=== PATIENT | male | born 1935 | race Caucasian/White ===

== ENCOUNTER 2016-12-21 03:17 | Inpatient (IN) | payer MEDICARE, OTHER ==
[2017-06-07] MEDS ORDERED: FLOMAX DPS0.4 MG PO (12:33)
[2017-06-07] MEDS ORDERED: CEFTIN DPS500 MG PO (12:33)
[2017-06-07] MEDS ORDERED: MIRALAX PACKET17 GM PO (12:33)
[2017-06-07] MEDS ORDERED: VASOTEC DPS10 MG PO (12:34)
[2017-06-07] MEDS ORDERED: MULTIVITAMINS1 EAC8 PO (12:34)
[2017-06-07] MEDS ORDERED: NORVASC5 MG PO (12:34)
[2017-06-07] MEDS ORDERED: DUONEB DPS3 ML IH (12:35)
[2017-06-07] MEDS ORDERED: ZITHROMAX250 MG PO (12:35)
[2017-06-07] MEDS ORDERED: TYLENOL DPS325 MG PO (12:36)
[2017-06-07] MEDS ORDERED: DULCOLAX-DPS10 MG PR (12:36)
[2017-06-07] MEDS ORDERED: BIOTENE MOIST44.3 ML PO (12:36)
[2017-06-07] MEDS ORDERED: MILK OF MA400 MG/5 M PO (12:36)
== END 2016-12-28 13:49 | DRG 190 ==
DX: J44.0 Chronic obstructive pulmonary disease with (acute) lower respiratory infection (principal); J18.9 Pneumonia, unspecified organism; J96.01 Acute respiratory failure with hypoxia; R47.01 Aphasia; S06.350A Traumatic hemorrhage of left cerebrum without loss of consciousness, initial encounter; I10 Essential (primary) hypertension; R48.2 Apraxia; N32.0 Bladder-neck obstruction; S00.11XA Contusion of right eyelid and periocular area, initial encounter; W19.XXXA Unspecified fall, initial encounter; Z87.891 Personal history of nicotine dependence; Z86.73 Personal history of transient ischemic attack (TIA), and cerebral infarction without residual deficits

== ENCOUNTER 2017-05-30 16:54 | Inpatient (IN) | payer MEDICARE, OTHER ==
[~2017-05-30] VITALS: Ht 177.8 cm; Wt 64.2 kg
--- NOTE | ~2017-05-30 | ECH ---
Transthoracic Echocardiography Report (TTE) Demographics Patient Name ROSALINE RODRIGUEZ Date of Study 06/02/2017 Patient Number [id number] Visit Number [id number] Date of 1935 Room Number 421 Accession Number [id number] Gender Male Age 82 year(s) Referring Blaine Agee Accounts Payables Clerk Zita Naylor [facility] Physician Physician Interpreting Cecil Golden MD Websphere Consultant Physician Supervising Ordering Physician Blaine Agee MD, MD/P Nurse Stress Air Box Tester Conclusions Summary Technically fair exam. The estimated left ventricular ejection fraction is 60-65%. Mild to moderate left ventricular hypertrophy. Diastolic assessment reveals Grade I diastolic dysfunction. Normal right ventricle structure and function. The left atrium is mildly dilated. The right atrium is moderately dilated. There is mild pulmonary hypertension. The pulmonary pressure (RVSP) is 36 mmHg. Mild pulmonic valve regurgitation by color Doppler. Small to moderate size anterior pericardial effusion. Possible pleural effusion. Procedure Type of Study TTE procedure:Echo Complete SF. Procedure Date Date: 06/02/2017 Start: 09:17 AM Technical Quality: Fair Indications:Congestive heart failure, Shortness of breath and Hypertension. Appropriate Use Criteria: 9 Height: 70 inches Weight: 146 pounds BSA: 1.83 m Rhythm: Irregular HR: 84 bpm BP: 134/63 mmHg M-Mode/2D Measurements LV Diastolic Dimension: 4.87 cm LV Systolic Dimension: 2.71 cm LV Septum Diastolic: 1.4 cm LV PW Diastolic: 1.2 cm AO Root Dimension: 3.4 cm LA Dimension: 4.76 cm LVOT: 2.18 cm RV Base: 4.4 cm RV Mid: 3.2 cm RV Length: 7.3 cm TAPSE: 2.4 cm TDI-S': 15 cm/s Doppler Measurements AV Peak Velocity: 1.26 m/s MV Peak E-Wave: 0.6 m/s AV Peak Gradient: 6.35 mmHg MV Peak A-Wave: 0.8 m/s LVOT Peak Velocity: 0.7 m/s MV E/A Ratio: 0.75 MV P1/2t: 79 msec TR Velocity:2.8 m/s TR Gradient:31.36 mmHg MV Deceleration Time: 271 msec Estimated RAP:5 mmHg MV Area (PHT): 2.78 cm Estimated RVSP: 36 mmHg PV Peak Velocity: 1 m/s PV Peak Gradient: 4 mmHg Estimated PASP: 36.36 mmHg RA Area: 35 cm Findings Left Ventricle The left ventricle is normal in size . Mild to moderate left ventricular hypertrophy. Diastolic assessment reveals Grade I diastolic dysfunction. Right Ventricle Normal right ventricle structure and function. Left Atrium The left atrium is mildly dilated. Unable to calculate left atrial volume index. Right Atrium The right atrium is moderately dilated. Mitral Valve Normal mitral valve structure and function. Aortic Valve The aortic valve is mildly sclerotic, best seen subcostal view. Tricuspid Valve Normal appearing tricuspid valve. Mild tricuspid regurgitation by color Doppler. There is mild pulmonary hypertension. The pulmonary pressure (RVSP) is 36 mmHg. Pulmonic Valve Normal pulmonic valve structure and function. Mild pulmonic valve regurgitation by color Doppler. Pericardial Effusion Small to moderate size anterior pericardial effusion. Miscellaneous Visualized portions of the aortic root and ascending aorta appear normal in size. Pleural Effusion Possible pleural effusion. Signature
--- NOTE | 2017-06-05 11:33 | HP ---
ADMIT: 05/30/2017 RM/LOC: [facility] MR#: [id number] [address] [address] LU[place]ROS[place] [address] History and Physical SEX: M AGE: 82 : 1935 Corrected: 06/02/2017 0628 njv DATE OF SERVICE: CHIEF COMPLAINT AND HISTORY OF THE PRESENT ILLNESS: This 82-year-old male is admitted with pneumonia and possible congestive heart failure. The patient has a history of COPD, he has been living in a long term. He was noted to be hypoxic and in the long term, he has also had a deep cough, running a fever. He was brought to the emergency room. He was found to have left-sided infection and possible congestive heart failure. The patient was started on antibiotics, blood cultures were drawn, and he is admitted for further therapy. PREVIOUS MEDICAL HISTORY: Generally, his health has been poor. SOCIAL HISTORY: The patient has a history of smoking until approximately 8 months ago. He does not drink alcohol. He is living in a long term. He is retired. FAMILY HISTORY: There is no history of deep vein thrombophlebitis. REVIEW OF SYSTEMS: HEENT: There has been no syncope, headaches, or hearing loss. CARDIORESPIRATORY: The patient has a heavy smoking history. No history of congestive heart failure or myocardial infarction. He has had no hemoptysis. He has been somewhat short of breath lately. GASTROINTESTINAL: No nausea, vomiting, bloody stools, or diarrhea. GENITOURINARY: No hematuria or dysuria. He has had urinary retention and has been on Flomax. METABOLIC/ENDOCRINE: No history of thyroid disease or diabetes. MUSCULOSKELETAL: The patient has had some osteoarthritis. PHYSICAL EXAMINATION: VITAL SIGNS: Blood pressure is 116/52, respirations 20, pulse 96 and regular, temperature 97.1. GENERAL: The patient is an elderly male who is cooperative. He is oriented. HEENT: Head, normocephalic without exostoses. LOUIS. Throat within normal limits. NECK: Neck veins not distended. Thyroid not enlarged. CHEST: Diminished breath sounds bilaterally with bilateral gray. He has diminished breath sounds, particularly in the left lower lobe. No wheezes are heard. HEART: Regular rhythm. No murmur is heard. ABDOMEN: Soft, nontender. Liver is not enlarged. Spleen is not palpable. No abnormal masses are palpated. Femoral pulses are strong and equal bilaterally. GENITALIA: Normal. ADMIT: 05/30/2017 RM/LOC: [facility] MR#: [id number] [address] [address] [place] [address] History and Physical SEX: M AGE: 82 : 1935 EXTREMITIES: No cyanosis, clubbing or edema. ASSESSMENT: 1. Pneumonia. 2. Chronic obstructive pulmonary disease. 3. Hyponatremia. 4. History of intracranial hemorrhage with residual hemiparesis. 5. History of hypertension. 6. Urinary retention. Yaniv Valladares MD/ lianet JOB #: [id number] CC: Yaniv Valladares, Attending Physician Yaniv Valladares, Family Physician Corrected: 06/02/2017 0628 benja
[2017-06-07] MEDS ORDERED: MIRALAX PACKET17 GM PO (12:33)
[2017-06-07] MEDS ORDERED: CEFTIN DPS500 MG PO (12:33)
[2017-06-07] MEDS ORDERED: FLOMAX DPS0.4 MG PO (12:33)
[2017-06-07] MEDS ORDERED: MULTIVITAMINS1 EAC8 PO (12:34)
[2017-06-07] MEDS ORDERED: VASOTEC DPS10 MG PO (12:34)
[2017-06-07] MEDS ORDERED: NORVASC5 MG PO (12:34)
[2017-06-07] MEDS ORDERED: ZITHROMAX250 MG PO (12:35)
[2017-06-07] MEDS ORDERED: DUONEB DPS3 ML IH (12:35)
[2017-06-07] MEDS ORDERED: TYLENOL DPS325 MG PO (12:36)
[2017-06-07] MEDS ORDERED: MILK OF MA400 MG/5 M PO (12:36)
[2017-06-07] MEDS ORDERED: DULCOLAX-DPS10 MG PR (12:36)
[2017-06-07] MEDS ORDERED: BIOTENE MOIST44.3 ML PO (12:36)
--- NOTE | 2017-06-11 11:37 | DS ---
ADMIT: 05/30/2017 RM/LOC: [facility] MR#: [id number] [address] [address] [place] [address] Discharge Summary SEX: M AGE: 82 : 1935 ADMISSION DATE: 05/30/2017 DISCHARGE DATE: 06/05/2017 HISTORY AND PHYSICAL: Please see the chart. LABORATORY AND X-RAY DATA: Please see the chart. CLINICAL COURSE: This 82-year-old male was admitted with pneumonia, he was hypoxic, he had a deep cough and was running a fever. He came to the emergency room. He had left sided infiltrate and an effusion. He was started on antibiotics. Blood cultures were drawn. He was admitted for further therapy. The patient was placed on telemetry. He was started on Rocephin 2 g daily and Zithromax 500 mg intravenously daily. He was to keep his O2 saturations 90 and above. The patient has been losing weight recently. Nutrition therapy was asked to see him. There was also a questionable history of congestive heart failure. His BNP was elevated. He also was hyponatremic. Vasotec was started and initially was not have restricted with sodium because of the hyponatremia. The patient's IV fluids were then discontinued. The cardiac ultrasound did show a pulmonary hypertension as well as some aortic insufficiency. He gradually became stronger and more alert. He was given DuoNeb inhalers and Vasotec. His deep cough improved, but he still had some. His x-ray did stabilize. Physical therapy was asked to see the patient for ambulation. At the time of discharge, the patient was asked to go back to the skilled nursing. He will continue his physical therapy. He will be continued on Ceftin 250 mg b.i.d. for 5 more days. He is to continue his Flomax 0.4 mg daily, MiraLAX daily, Norvasc 5 mg daily, therapeutic mobile vitamin, Vasotec 10 mg daily, Zithromax 500 mg orally for 5 more days. He will be given a DuoNeb inhaler q.i.d. IV fluids were discontinued. He will be seen in the office in two weeks. FINAL DIAGNOSES: 1. Pneumonia. 2. Chronic obstructive lung disease. 3. Hyponatremia. 4. History of intracranial hemorrhage with residual hemiparesis. 5. Hypertension. 6. Urinary retention. Yaniv Valladares MD/ vdg JOB #: [id number] CC: Yaniv Valladares MD, Attending Physician Yaniv Valladares MD, Family Physician
--- NOTE | 2017-06-17 09:28 | ER ---
ADMIT: 05/30/2017 RM/LOC: ER [facility] MR#: [id number] [address] [address] [place] [address] Emergency Room Report SEX: M AGE: 82 : 1935 DATE: 05/30/2017 ADDENDUM: CHIEF COMPLAINT: Increased shortness of breath. HISTORY OF PRESENT ILLNESS: This is an 82-year-old male, who has a history of COPD. In fact, he quit smoking just 6-8 months ago. He has a chronic cough, but over at [facility], [place], they noticed that he was requiring more oxygen. Upon arrival, he was on a 15 L non-rebreather. We have titrated him down to 4- 5 liters. He is saturating at 90% at this time. Chest x-ray was done, it does show a left-sided pneumonia. Other findings, he is hyponatremic with a sodium of 123 and chloride of 88. Lactic acid is normal at 0.9. PT, INR normal. CBC was normal except for white count 11.3, hemoglobin of 13.1, and platelets at 244. Blood cultures have been drawn. I did start Rocephin and azithromycin down here in the emergency room. FINAL CLINICAL IMPRESSION: 1. Left-sided pneumonia. 2. Hyponatremia. DISPOSITION: I did speak with Dr. Galan regarding this patient for Dr. Valladares, he is admitting to the floor. NOMAN Ceja / Сергей Guardado MD / lianet JOB #: [id number] CC: Danial Navarrete MD, Attending Physician Yaniv Valladares MD, Family Physician
== END 2017-06-05 16:15 | DRG 190 ==
LOC: ER 16:54 → 4PCU 19:11
PROC: 3E0234Z Introduction of Serum, Toxoid and Vaccine into Muscle, Percutaneous Approach (ICD-10-PCS; principal; 2017-06-05)
DX: J44.0 Chronic obstructive pulmonary disease with (acute) lower respiratory infection (principal); J18.9 Pneumonia, unspecified organism; I27.2 Other secondary pulmonary hypertension; E87.1 Hypo-osmolality and hyponatremia; I69.159 Hemiplegia and hemiparesis following nontraumatic intracerebral hemorrhage affecting unspecified side; Z23 Encounter for immunization; R63.4 Abnormal weight loss; I35.1 Nonrheumatic aortic (valve) insufficiency; R09.02 Hypoxemia; M19.90 Unspecified osteoarthritis, unspecified site; I10 Essential (primary) hypertension; R33.9 Retention of urine, unspecified; Z87.891 Personal history of nicotine dependence; Z66 Do not resuscitate